=== PATIENT | male | born 1970 | race Hispanic/Latino ===

== ENCOUNTER → 2018-08-26 | Day surgery (SDC) | payer BC ==
[~2018-08-26] MED LIST: FENTANYL CITRATE/PF 100MCG/2 ML INJ ONE; GEMFIBROZIL600 MG PO; GLUCAGON FOR INJ 1 MG VIAL ONE; HYOSCYAMINE SULFATE 0.5 MG/ML INJ ONE; INSULIN REGULAR, HUMAN 100 UNIT/1 ML 3ML VIAL ONE; LIDOCAINE HCL 2% LOCAL INJ 5 ML SDV VIAL INJ ONE; LISINOPRIL10 MG PO; METFORMIN HCL500 MG PO; MIDAZOLAM HCL 2 MG/2 ML VIAL ONE; PROPOFOL IV EMULSION 10 MG/ML 50 ML VIAL ONE
[2018-08-26 12:19] VITALS: BP 117/87
--- NOTE | 2018-08-26 16:39 | Operative Report ---
DATE OF PROCEDURE: August 26, 2018 PROCEDURES PERFORMED 1. Esophagogastroduodenoscopy with biopsies. 2. Colonoscopy with polypectomy. INDICATIONS FOR EGD: Upper abdominal pain, dyspepsia. INDICATIONS FOR COLONOSCOPY: Lower abdominal pain. MEDICATION: Patient was done under MAC. Please see anesthesiologist's note. PROCEDURE: With the patient in left lateral decubitus position, a flexible fiberoptic Olympus gastroscope was introduced into the esophagus under direct visualization without any difficulty. There was some patchy erythema noted in the distal esophagus. The scope was then advanced with ease into the stomach, and mucosa overlying the antrum revealed some diffuse erythema and moderate edema, and biopsies were obtained and sent to stain for H. pylori. There was an approximately 8-mm submucosal nodule in the mid antrum anterior wall and that was biopsied. The mucosa overlying the body revealed some patchy nodularity, and biopsies were obtained also. A minute nodule was noted in the peripyloric area, that was biopsied. The pylorus was of normal contour and shape. It was intubated with ease, and the scope was advanced all the way to the 2nd portion of the duodenum. The scope was then withdrawn slowly and approximately 4-mm nodule in proximal 2nd portion was noted and that was biopsied. Mucosa overlying the duodenal bulb appeared to be within normal limits. The scope was then withdrawn back into the stomach and retroflexed, and the mucosa overlying the fundus and the cardia appeared to be within normal limits. The scope was then straightened out. The stomach was decompressed. The scope was subsequently withdrawn. Patient tolerated the procedure well. IMPRESSION 1. Distal esophagitis. 2. Gastritis, biopsied. Biopsy sent to stain for Helicobacter pylori. 3. Approximately 8-mm submucosal nodule, antrum, anterior wall, biopsied. 4. Peripyloric nodule, minute, biopsied. 5. An approximately 4-mm nodule, proximal 2nd portion, biopsied. PLAN: Follow up histology. Initiate Protonix 40 mg 1 p.o. q.a.m. a.c. Patient was then turned around. After adequate lubrication of the anal canal, a flexible fiberoptic Olympus colonoscope was inserted into the rectum with ease and advanced all the way to the cecum. Prep overall was suboptimal with retained stools in the colon. The scope was then withdrawn slowly. Whatever was visualized in the mucosa overlying the cecum appeared to be within normal limits. One polyp was removed per snare electrocautery in the ascending colon. The transverse grossly appeared to be within normal limits. Three polyps were removed per hot snare in the descending colon. The sigmoid and the rectum grossly appeared to be within normal limits. The scope was then retroflexed into the distal rectum and small internal hemorrhoids were noted, none of which was actively bleeding. The scope was then straightened out. It was subsequently withdrawn. Patient tolerated the procedure well. IMPRESSION 1. Suboptimal prep. 2. Ascending colon polyp x 1, snared. 3. Descending colon polyps x 3, snared. 4. Internal hemorrhoids, none actively bleeding. PLAN: Follow up histology. Initiate high-fiber, low-fat diet. Initiate high-fiber supplement. A followup colonoscopy in 1 year is in order due to suboptimal prep to rule out synchronous colorectal neoplasm. Job#: [id number]
== END | disposition home or self-care (01) ==
LOC: OR 08:05
PROVIDERS: ATTEND Internal Medicine Gastroenterology
DX: K21.0 Gastro-esophageal reflux disease with esophagitis (principal); K29.50 Unspecified chronic gastritis without bleeding; K31.9 Disease of stomach and duodenum, unspecified; D12.2 Benign neoplasm of ascending colon; D12.4 Benign neoplasm of descending colon; K64.8 Other hemorrhoids; K58.9 Irritable bowel syndrome, unspecified; I10 Essential (primary) hypertension; E11.9 Type 2 diabetes mellitus without complications; Z79.84 Long term (current) use of oral hypoglycemic drugs; Z01.810 Encounter for preprocedural cardiovascular examination; R06.83 Snoring; F41.9 Anxiety disorder, unspecified; E66.9 Obesity, unspecified
CPT/HCPCS: 36415; 43239; 45385; 82948; 93005; J1610; J1980; J2001; J2250